=== PATIENT | male | born 1990 | race Caucasian/White ===

== ENCOUNTER 2017-04-07 18:08 | Emergency (ER) | payer OTHER | END 2017-04-07 20:25 | disposition home or self-care (01) | LOC: D.ER 18:08 | DX: M25.512 Pain in left shoulder (principal); F17.200 Nicotine dependence, unspecified, uncomplicated ==

== ENCOUNTER 2018-08-21 06:56 | Emergency (ER) | payer OTHER ==
[~2018-08-21] VITALS: Ht 177.8 cm; Wt 100.0 kg
[2018-08-21 07:17] VITALS: Ht 177.8 cm; Wt 100.0 kg
[2018-08-21] MEDS ORDERED: OMNICEF300 MG PO (08:08)
[2018-08-21 08:15] VITALS: BP 126/71
== END 2018-08-21 08:16 | disposition home or self-care (01) ==
LOC: D.ER 06:56
DX: J02.0 Streptococcal pharyngitis (principal)

== ENCOUNTER 2020-09-20 12:10 | Emergency (ER) | payer OTHER ==
[~2020-09-20] VITALS: Ht 177.8 cm; Wt 93.2 kg
[~2020-09-20 12:10] MED LIST: OMNICEF300 MG PO
[2020-09-20 12:13] VITALS: Ht 177.8 cm; Wt 93.2 kg
[2020-09-20 14:35] VITALS: BP 135/61
[2020-09-20] MEDS ORDERED: MEDROL DOSE PACK4 MG PO (16:05)
== END 2020-09-20 14:36 | disposition home or self-care (01) ==
LOC: D.ER 12:10
DX: R07.89 Other chest pain (principal); T63.481A Toxic effect of venom of other arthropod, accidental (unintentional), initial encounter; R06.02 Shortness of breath